=== PATIENT | female | born 1970 | race Hispanic/Latino ===

== ENCOUNTER 2023-05-15 10:38 | Emergency (ER) | payer MEDICAID, SELFPAY ==
[2023-05-15 10:38] VITALS: BP 145/131; PULSE 72; RESP 16; TEMP 36.4; O2SAT 99; BMI 32.1
--- NOTE | 2023-05-15 10:59 | EKG12_ITS ---
Test Reason : HTN Blood Pressure : / mmHG Vent. Rate : 072 BPM Atrial Rate : 072 BPM P-R Int : 168 ms QRS Dur : 084 ms QT Int : 382 ms P-R-T Axes : 040 025 048 degrees QTc Int : 418 ms Normal sinus rhythm Possible Inferior infarct , age undetermined Abnormal ECG Confirmed by JAMES PRUITT, DELON ([id number]), associate entertainment editor ARGELIA BUNN ([id number]) on 05/17/2023 8:39:12 AM Referred By: Confirmed By:DELON RAMIREZ MD
--- NOTE | 2023-05-15 11:00 | EX.ED.DYSGE1 ---
HPI History of Present Illness Chief Complaint: Hypertension Detail of Chief Complaint: Right shoulder pain and hypertension Informant: patient Narrative Narrative: Patient presents to the emergency department from urgent care with complaint of elevated blood pressure at urgent care. She presented to urgent care because she has been having right shoulder pain for greater than 1 year. Pain in right shoulder worse over the last 2 months. Having pain with range of motion and movement and at times having hard time sleeping. She states that she fell over a year ago landing backwards on her right hand and she states that is maybe when the pain started. Patient is Greek-speaking and history obtained through transition coach on iPad. She denies any real chest pain other than she sometimes gets some pressure in her chest when she is feeling sad or down. She denies exertional dyspnea. No history of hypertension and currently does not take any medications. Patient is right-hand dominant. PFSH PFSH Home Medications hydrocodone-acetaminophen 5-325mg 5mg-325mg 1 tab PO Q4H PRN PRN Pain 2 days #10 TABLETS 05/15/23 [Rx Last Taken Unknown] naproxen 500 mg tablet (Naprosyn) 500 mg PO BID PRN pain #20 tabs 05/15/23 [Rx Last Taken Unknown] Allergy/AdvReac Type Severity Reaction Status Date / Time No Known Allergies Allergy Verified 05/15/23 10:38 Social History Smoking Status: Former smoker ROS ROS ED ROS Narrative Hypertension Review of Systems ROS Unobtainable: other Constitutional Constitutional ED: Reports lethargy; Denies chills, fever(s), sweats or weight loss Eyes Eyes: Denies blurry vision, change in vision or diplopia ENT ENT ED: Denies rhinorrhea or sore throat Cardiovascular Cardiovascular: Denies chest pain, orthopnea or racing heartbeat Respiratory/Chest Respiratory/Chest: Denies cough, dyspnea, dyspnea on exertion, orthopnea or sputum Gastrointestinal Gastrointestinal: Denies abdominal pain, diarrhea, nausea or vomiting Genitourinary Genitourinary ED: Denies dysuria, hematuria or urinary frequency Musculoskeletal Musculoskeletal: Reports other Details: Right shoulder pain ; Denies arthralgias, back pain, myalgias or neck pain Integumentary Denies abscess, Abrasions or rash Neurologic Neurologic: Denies headache(s) or weakness Psychiatric Psychiatric: Denies anxiety, depression or suicidal thoughts Endocrine Endocrinology: Denies polydipsia, polyphagia or polyuria Hematologic/Lymphatic Hematologic/Lymphatic: Denies easy bleeding, easy bruising or lymphadenopathy Allergic/Immunologic Allergic/Immunologic ED: Denies mouth swelling, tongue swelling or urticaria EXAM Physical Exam Const Vital Signs: 05/15/23 10:38 05/15/23 12:45 05/15/23 13:00 Temperature 97.6 F L Temperature Source Temporal Pulse Rate 72 69 78 Respiratory Rate 16 16 16 Blood Pressure 145/131 H 117/75 120/70 Blood Pressure Mean 135 89 86 Pulse Ox 99 98 98 Oxygen Delivery Method Room Air Room Air Positive well nourished and well developed General Appearance ED: well developed and NAD HEENT Reports TM's clear and moist mucous membranes normocephalic and atraumatic; Negative for trauma or tenderness Tympanic Membrane ED: Yes TM's clear Eyes PERRL and EOMs intact bilaterally General Eye ED: Negative for pale conjunctiva or scleral icterus Neck no lymphadenopathy, supple and no JVD General: Negative for tenderness Chest Wall inspection of chest normal and palpation of chest normal Chest: Negative for tenderness Resp normal respiratory effort and clear to auscultation bilaterally Effort and Inspection: Negative for respiratory distress or pain with movement Auscultation: Negative for rhonchi, wheezes or diminished lung sounds Cardio regular rate, regular rhythm, S1 normal heart sound, S2 normal heart sound and no murmurs Peripheral Pulses: pulses 2+ throughout GI normal to inspection, nondistended, normoactive bowel sounds, soft to palpation, non-tender, non-distended and no masses Back/Spine no CVA tenderness and no thoracic nor lumbar tenderness Extremity Extremity Narrative: Right shoulder-patient has tenderness palpation over the anterior aspect of the glenohumeral joint on the right. She has pain with range of motion especially abduction past 90 degrees. She has tenderness over the bicep tendon that seems to reproduce her pain. She is neurovascular intact distally. There is no erythema or warmth noted to the joint. No significant soft tissue swelling noted. Neurovascularly intact distally. General Extremety ED: Negative for edema General Extremity: Negative for edema Neuro oriented x3, CN's II-XII intact bilaterally, no sensory deficits noted and gait normal Sensorium / Orientation: awake, alert, oriented to person, oriented to place and oriented to time Motor Exam: strength 5/5 throughout and strength abnormal Psych mental status grossly normal Skin no rashes or lesions noted and no wounds MDM MDM MDM Narrative Medical decision making narrative: Patient presents with right shoulder pain has been chronic and worse over the last 2 months. No recent injury. Also was seen at urgent care and referred for elevated blood pressure. Patient does not have a history of hypertension. On arrival here her pressure was 145/131 whereas at the urgent care her systolic was over 200. Without any treatment repeat blood pressure down into the 120s over 70s. EKG obtained on arrival showed sinus rhythm with rate of 72 bpm with no acute ST segment changes. CBC with differential and chemistries unremarkable. Troponin was normal. X-rays of the right shoulder obtained showed no acute disease process. Patient will be given a prescription for naproxen and a few [place] for severe pain. She will be given a sling. She will be given referral to orthopedics for follow-up. I do not feel any treatment is required for blood pressure at this time. Suspect her elevated blood pressure may have been related to pain versus whitecoat hypertension versus anxiety. Clinically she looks well. Patient also has had a cough for 3 days therefore COVID and flu testing was obtained and she was positive for influenza A. Lab Data Attestation: I reviewed the patient's lab results. Labs: Laboratory Results - last 24 hr 05/15/23 11:15 WBC 6.5 RBC 4.40 Hgb 13.6 Hct 39.6 MCV 90.0 MCH 30.9 MCHC 34.3 RDW Std Deviation 41.6 RDW Coeff of Elmer 12.6 Plt Count 222 MPV 10.0 Immature Gran % (Auto) 0.600 Neut % (Auto) 81.2 H Lymph % (Auto) 11.7 L Haines % (Auto) 6.2 Eos % (Auto) 0.0 Baso % (Auto) 0.3 Absolute Neuts (auto) 5.3 Absolute Lymphs (auto) 0.76 L Nucleated RBC % 0 Sodium 142 Potassium 3.8 Chloride 113 H Carbon Dioxide 26.0 Anion Gap 3 L BUN 14 Creatinine 0.71 Estim Creat Clear Calc 80.04 Est GFR (MDRD) Af Amer 111 Est GFR (MDRD) Non-Af 92 BUN/Creatinine Ratio 19.8 Glucose 156 H Calcium 9.3 Troponin I High Sens 5 Radiography Diagnostic Testing: Clinical Impression(s) from Imaging Studies Shoulder X-Ray 05/15/23 11:14 IMPRESSION: No acute fracture or dislocation identified in the right shoulder. Electronically Signed: Sandi Crawford MD at 11:53 EST , 2 view x-rays of the right shoulder obtained interpreted by myself as no evidence of fracture dislocation or acute disease process. Radiology in agreement. EKG Initial EKG: Attestation: I personally reviewed and interpreted this EKG as follows: Comments: Sinus rhythm with rate of 72 bpm with no acute ST segment changes. Discharge Plan Triage Chief Complaint: Hypertension ED Provider: Marla Lockwood Dx/Rx/DC Orders Clinical Impression: Influenza A, Acute pain of right shoulder Instructions: ED Influenza (Adult), ED Shoulder Pain, Uncertain Cause Prescriptions: New hydrocodone-acetaminophen [hydrocodone-acetaminophen] 5-325 mg tablet 1 tab PO Q4H PRN PRN (Reason: Pain) 2 Days Qty: 10 0RF naproxen [Naprosyn] 500 mg tablet 500 mg PO BID PRN (Reason: pain) Qty: 20 0RF Referrals: Gary Mukherjee DO [Med Staff - Active Staff] - 3-5 Days Junito Carcamo MD [Med Staff - Active Staff] - 3-5 Days Disposition Disposition: Home, Self Care Discharge Date/Time: 05/15/23 15:29
--- NOTE | 2023-05-15 11:03 | NURSING ---
NO OLD EKGS
--- NOTE | 2023-05-15 11:14 | RAD_ITS ---
HISTORY: pain. TECHNIQUE: XR Shoulder Min 2 Views. COMPARISON: None. FINDINGS: BONES : No acute fracture identified. Mineralization unremarkable. JOINTS: No glenohumeral dislocation. Mild acromioclavicular degenerative change without subluxation. SOFT TISSUES: Small calcified granuloma in the right lung base. RAD/Shoulder min 2 Views IMPRESSION: No acute fracture or dislocation identified in the right shoulder. Electronically Signed: Sandi Crawford MD at 11:53 EST ,
[2023-05-15 11:20] LABS: Absolute Lymphocyte Count 0.76 X10^3/uL (0.83-4.51); Absolute Neutrophil Count 5.3 X10^3/uL (2.0-7.7); Basophil# 0.02 X10^3/uL; Basophil% 0.3 % (0-1); Hematocrit 39.6 % (37-47); Hemoglobin 13.6 g/dL (12.0-15.0); Lymphocyte # 0.76 X10^3/ul (0.83-4.51); Lymphocyte % 11.7 % (19-41); Mean Corp Hgb Conc 34.3 g/dL (32-36); Mean Corpuscular Hgb 30.9 pg (27.0-32.0); Monocyte% 6.2 % (0-10); NRBC Flagged by Analyzer 0 % (0-5); Neutrophil # 5.27 X10^3/uL (2.7-7.7); Neutrophil % 81.2 % (47-70); Platelet Count 222 K/mm3 (150-450); RBC Distribution Width CV 12.6 % (11.6-14.6); RBC Distribution Width SD 41.6 fl (35.1-43.9); White Blood Count 6.5 K/mm3 (4.4-11.0)
[2023-05-15 11:38] LABS: Anion Gap 3 (5-15); BUN 14 mg/dL (7-18); BUN/Creat Ratio 19.8 RATIO (10-20); Calcium,Total 9.3 mg/dL (8.5-10.1); Chloride 113 mmol/L (98-107); Creatinine, Serum 0.71 mg/dL (0.55-1.02); EST Glomerular Filtration Rate 92 mL/min (>60); Est Glom Filt Rate - Afr Amer 111 mL/min (>60); Estimated Creatinine Clearance 80.04 ml/min; Glucose 156 mg/dL (74-106); Potassium 3.8 mmol/L (3.5-5.1); Sodium Level 142 mmol/L (136-145); Troponin-I HS 5 pg/mL (3.0-54.0)
[2023-05-15 12:45] VITALS: BP 117/75; PULSE 69; RESP 16; O2SAT 98
[2023-05-15 13:00] VITALS: BP 120/70; PULSE 78; RESP 16; O2SAT 98
== END 2023-05-15 15:29 | disposition home or self-care (01) ==
PROVIDERS: Emergency Provider Emergency Medicine; Visit Provider Emergency Medicine
DX: J10.1 Influenza due to other identified influenza virus with other respiratory manifestations (principal); M25.511 Pain in right shoulder; I10 Essential (primary) hypertension; Z87.891 Personal history of nicotine dependence; W19.XXXA Unspecified fall, initial encounter; R05.9 Cough, unspecified
CPT/HCPCS: 73030; 80048; 84484; 85025; 87631; 93005; 99285

== ENCOUNTER 2023-09-21 17:48 | Emergency (ER) | payer MEDICAID, SELFPAY ==
[2023-09-21 17:49] VITALS: BP 131/76; PULSE 94; RESP 18; TEMP 36.1; O2SAT 100
--- NOTE | 2023-09-21 18:45 | RAD_ITS ---
STUDY: X-RAY - RIGHT ELBOW REASON FOR EXAM: Female, 53 years old. Pain TECHNIQUE: 2 view(s) of the elbow. COMPARISON: None. FINDINGS: Normal visualized humerus, radius and ulna. Normal radiocapitellar and ulnotrochlear articulations. The soft tissue structures are unremarkable. RAD/Elbow 2 Views IMPRESSION: Normal x-ray examination of the elbow. Electronically Signed: Jone Ponce MD at 19:07 EDT ,
--- NOTE | 2023-09-21 18:45 | RAD_ITS ---
STUDY: X-RAY - RIGHT SHOULDER REASON FOR EXAM: Female, 53 years old. Pain TECHNIQUE: 4 view(s) of the shoulder. COMPARISON: May 15, 2023 FINDINGS: Normal glenohumeral articulation. Normal acromioclavicular joint. Normal acromion. Normal humeral head and visualized proximal humerus. The soft tissue structures are unremarkable. Normal visualized pulmonary apex. RAD/Shoulder min 2 Views IMPRESSION: Normal x-ray examination of the shoulder. Electronically Signed: Jone Ponce MD at 19:06 EDT ,
--- NOTE | 2023-09-21 21:09 | EDS_ITS ---
HPI History of Present Illness HPI Narrative: 53-year-old non-Azeri speaking, female with chronic right shoulder pain for 6 months. Denies any fall injury or trauma. States she had it evaluated 3 months ago without diagnosis. I do not think she is followed up with anybody else since that time. She does not have a primary care physician. History and exam were done with an bookkeeping service sales agent. Chief Complaint: Upper Extremity Injury Informant: patient Occured/Mechanism Mechanism/Context: No injury and No blunt trauma Onset/Context/Timing Onset: Month(s) Context: Gradual Onset Timing: Continuous Quality of Pain: Dull and Aching Current Severity: Moderate Maximum Severity: Moderate Associated Symptoms Associated Symptoms: Negative for Parasthesia, Weakness or Loss of Funtion Narrative Narrative: 53-year-old female [id number] complaining of chronic right shoulder pain for 6 months. Limited range of motion. Denies any fall or trauma. No redness or fever. No prior history of surgery to the shoulder. Prior similar symptoms: Yes Recent Illness/Hospitalization: No PFSH PFSH no medical history Home Medications ?Medication ?Instructions ?Recorded ?Last Taken ?Type hydrocodone-acetaminophen 5-325mg 1 tab PO Q4H PRN PRN Pain 2 days 05/15/23 Unknown Rx 5mg-325mg #10 TABLETS naproxen 500 mg tablet (Naprosyn) 500 mg PO BID PRN pain #20 tabs 05/15/23 Unknown Rx Allergy/AdvReac Type Severity Reaction Status Date / Time No Known Allergies Allergy Verified 09/21/23 17:52 Social History Smoking Status: Former smoker ROS ROS ED ROS Narrative Denies recent illness. Review of Systems ROS Unobtainable: Denies due to encephalopathy Constitutional Constitutional ED: Denies chills Eyes Eyes: Denies eye pain ENT ENT ED: Denies dental pain Cardiovascular Cardiovascular: Denies abdominal pain Respiratory/Chest Respiratory/Chest: Denies chest congestion Gastrointestinal Gastrointestinal: Denies diarrhea Genitourinary Genitourinary ED: Reports none Musculoskeletal Musculoskeletal: Reports limited range of motion and other Details: Chronic right shoulder pain Integumentary Reports none Neurologic Neurologic: Reports none Psychiatric Psychiatric: Reports none Endocrine Endocrinology: Reports none Allergic/Immunologic Allergic/Immunologic ED: Reports none EXAM Physical Exam Narrative Exam Narrative: Well-appearing 53-year-old female. Vital signs stable afebrile. HEENT exam unremarkable. Neck nontender no lymphadenopathy. Back nontender. Lungs clear equal symmetrical bilaterally. Heart regular rhythm rate about 90 no murmur. Chest wall and ribs nontender. Abdomen soft nontender. Moving all 4 extremities. No edema. Plan pain in her right shoulder. There is no redness or swelling. No warmth. No bony deformity. No axillary lymphadenopathy. The distal humerus, elbow, forearm wrist and hand are nontender. 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 Normal sensation. Strong radial pulse. Normal cap refill. Skin is normal. She has limited range of motion with her right shoulder. She can lift her arm overhead. Concerning for possible rotator cuff tear. The left shoulder is normal with normal range of motion. Lower extremities are unremarkable. She is awake and alert. Const Vital Signs: 09/21/23 17:49 Temperature 97 F L Temperature Source Temporal Pulse Rate 94 Respiratory Rate 18 Blood Pressure 131/76 H Blood Pressure Mean 94 Pulse Ox 100 Oxygen Delivery Method Room Air Positive well nourished, well developed, alert, oriented x3, no apparent distress, average body habitus, no limitations and healthy appearing; Negative for cachectic, contractures or unkempt General Appearance ED: active, cooperative, comfortable and well developed; Negative for unkempt, cachectic or contractures Nutritional Appearance: Negative for cachectic HEENT Reports normocephalic and head/scalp atraumatic Eyes PERRL and EOMs intact bilaterally General Eye ED: Yes normal appearance of both eyes Neck full ROM, No nuchal rigidity, no lymphadenopathy, supple, no meningeal signs and no JVD Lymph Lymphatic: no lymphadenopathy noted and no lymphedema noted; Negative for lymphedema or lymphadenopathy Chest Wall inspection of chest normal and palpation of chest normal Resp normal respiratory effort, normal air movement, no retractions, no use of accessory muscles, clear to auscultation bilaterally and percussion normal Cardio regular rate, regular rhythm, S1 normal heart sound, S2 normal heart sound, no murmurs, no rub, no gallops, no clicks and no JVD Rate: regular rate Rhythm: regular rhythm GI normal to inspection, nondistended, normoactive bowel sounds, soft to palpation, non-tender, non-distended and no masses Back/Spine no CVA tenderness, normal ROM, normal to inspection, thoracic and lumbar spine normal to inspection and no thoracic nor lumbar tenderness Extremity normal to inspection, normal capillary refill, no joint enlargement, no clubbing, cyanosis or edema, no calf tenderness and no pedal edema; Negative for full ROM Extremity Narrative: Limited range of motion right shoulder. Unable to lift her arm over her shoulder or overhead. Concern for rotator cuff tear due to her limited range of motion. There is no signs of septic joint. No redness or warmth. No signs of trauma. No swelling. Neuro oriented x3, CN's II-XII intact bilaterally, moves all extremities, no focal motor deficits and no sensory deficits noted Psych mental status grossly normal, thought process normal, cooperative and activity/motor behavior normal Appearance: grossly normal; Negative for unkempt Attitude: calm, engaged, No paranoid and No withdrawn Activity / Motor Behavior: appropriate eye contact Speech: normal speech Mood & Affect: euthymic mood Thought Process: normal thought process Thought Content: normal thought content Skin no rashes or lesions noted, no wounds, skin turgor normal, no jaundice and no petechiae General Skin Exam: no breakdown Lesions: no lesions MDM MDM MDM Narrative Medical decision making narrative: 51-year-old female chronic right shoulder pain. No trauma. Triage did a right shoulder x-ray and right elbow. They are both unremarkable. Due to her limited range of motion 90 this may be secondary to rotator cuff tear. She will be instructed to follow-up with orthopedics. I did go over imaging with the patient with an bookkeeping service sales agent iPad and she is comfortable with the plan. Motrin for pain. Lab Data Lab results narrative: Right shoulder x-ray several views interpreted by myself and radiologist shows no acute abnormality. Right elbow x-ray 2 view shows no acute abnormality. No fracture or dislocation. Radiography Diagnostic Testing: Clinical Impression(s) from Imaging Studies Elbow X-Ray 09/21/23 18:45 IMPRESSION: Normal x-ray examination of the elbow. Electronically Signed: Jone Ponce MD at 19:07 EDT , Shoulder X-Ray 09/21/23 18:45 IMPRESSION: Normal x-ray examination of the shoulder. Electronically Signed: Jone Ponce MD at 19:06 EDT Reading Location ID and State: [facility] / [place] Tel , Service support , Discharge Plan Triage Chief Complaint: Upper Extremity Injury ED Provider: Wellington Navarro Dx/Rx/DC Orders Clinical Impression: Chronic pain in right shoulder, Rotator cuff tear Instructions: ED Rotator Cuff Tear Prescriptions: No Action hydrocodone-acetaminophen [hydrocodone-acetaminophen] 5-325 mg tablet 1 tab PO Q4H PRN PRN (Reason: Pain) 2 Days Qty: 10 0RF naproxen [Naprosyn] 500 mg tablet 500 mg PO BID PRN (Reason: pain) Qty: 20 0RF Primary Care Provider: Care Physician,No Primary Referrals: Cory Lawrence MD [Med Staff - Active Staff] - As soon as possible Levi Valdovinos MD [Med Staff - Active Staff] - As soon as possible Care Physician,No Primary [Primary Care Provider] - Activity Restrictions/Additional Instructions: Motrin for pain and Tylenol. Call the orthopedic doctors I referred you to and see which 1 can get you in sooner. Due to your pain in your shoulder and lack of range of motion I believe this may be a rotator cuff tear. Your x-rays look okay. A torn rotator cuff does not show up on an x-ray. Print Language: [place] Disposition Disposition: Home, Self Care
[2023-09-21 21:16] VITALS: BP 130/89; PULSE 68; RESP 18; TEMP 36.1; O2SAT 100
== END 2023-09-21 21:17 | disposition home or self-care (01) ==
PROVIDERS: Emergency Provider Emergency Medicine; Visit Provider Emergency Medicine
DX: M25.511 Pain in right shoulder (principal); G89.29 Other chronic pain; M75.100 Unspecified rotator cuff tear or rupture of unspecified shoulder, not specified as traumatic; Z87.891 Personal history of nicotine dependence
CPT/HCPCS: 73030; 73070; 99282

== ENCOUNTER 2024-05-11 13:18 | Emergency (ER) | payer MEDICAID, SELFPAY ==
[2024-05-11 13:20] VITALS: BP 150/65; PULSE 101; RESP 18; TEMP 36.6; O2SAT 97; BMI 33.8
--- NOTE | 2024-05-11 13:26 | EKG12_ITS ---
Test Reason : CHEST PAIN Blood Pressure : */* mmHG Vent. Rate : 89 BPM Atrial Rate : 89 BPM P-R Int : 138 ms QRS Dur : 76 ms QT Int : 352 ms P-R-T Axes : * 160 127 degrees QTcB Int : 428 ms Normal sinus rhythm Low voltage QRS Left posterior fascicular block Inferior infarct , age undetermined Abnormal ECG Confirmed by JAMES PRUITT, DELON ([id number]), photographic editor ARGELIA BUNN ([id number]) on 05/12/2024 8:20:20 AM Referred By: Confirmed By: DELON RAMIREZ MD
--- NOTE | 2024-05-11 13:35 | RAD_ITS ---
INDICATION: chest pain EXAMINATION/TECHNIQUE: X-RAY - XR Chest 1 View COMPARISON: No relevant prior comparison study available FINDINGS: LINES/DEVICES: None. LUNGS: No consolidation, edema or effusion. There is a calcified appearing nodule within the right lower lung suggestive of a granuloma. No pneumothorax. MEDIASTINUM AND CARDIOVASCULAR STRUCTURES: Cardiac silhouette not enlarged. Central airways and mediastinal contour are unremarkable. BONES AND SOFT TISSUES: Unremarkable. RAD/Chest 1 View (Portable) IMPRESSION: No radiographic evidence of acute cardiopulmonary disease. Electronically Signed: Katie Gutierrez MD at 13:54 EST ,
[2024-05-11 13:41] LABS: Absolute Lymphocyte Count 1.92 X10^3/uL (0.83-4.51); Absolute Neutrophil Count 4.4 X10^3/uL (2.0-7.7); Basophil# 0.03 X10^3/uL; Basophil% 0.4 % (0-1); Eosinophil# 0.07 X10^3/uL; Hematocrit 42.8 % (37-47); Hemoglobin 14.7 g/dL (12.0-15.0); Lymphocyte # 1.92 X10^3/ul (0.83-4.51); Lymphocyte % 27.9 % (19-41); Mean Corp Hgb Conc 34.3 g/dL (32-36); Mean Corpuscular Hgb 29.7 pg (27.0-32.0); Mean Corpuscular Volume 86.5 fL (81-99); Mean Platelet Vol. 9.7 fl (6.2-12.0); Monocyte# 0.49 X10^3/uL; Monocyte% 7.1 % (0-10); NRBC Flagged by Analyzer 0 % (0-5); Neutrophil # 4.37 X10^3/uL (2.7-7.7); Neutrophil % 63.5 % (47-70); Platelet Count 249 K/mm3 (150-450); RBC Distribution Width CV 12.5 % (11.6-14.6); RBC Distribution Width SD 39.4 fl (35.1-43.9); Red Blood Count 4.95 M/mm3 (4.2-5.4); White Blood Count 6.9 K/mm3 (4.4-11.0)
[2024-05-11 14:06] LABS: Anion Gap 7 (5-15); BUN 16 mg/dL (7-18); BUN/Creat Ratio 18.9 RATIO (10-20); Calcium,Total 9.4 mg/dL (8.5-10.1); Chloride 108 mmol/L (98-107); Creatinine, Serum 0.85 mg/dL (0.55-1.02); EST Glomerular Filtration Rate 75 mL/min (>60); Est Glom Filt Rate - Afr Amer 90 mL/min (>60); Estimated Creatinine Clearance 82.92 ml/min; Glucose 120 mg/dL (74-106); Potassium 4.2 mmol/L (3.5-5.1); Sodium Level 142 mmol/L (136-145); Troponin-I HS (w/2H Reflex) < 3 pg/mL (3.0-54.0)
[2024-05-11 14:21] VITALS: BP 138/78; O2SAT 98
[2024-05-11 15:00] VITALS: BP 137/87; PULSE 78; RESP 16; O2SAT 98
--- NOTE | 2024-05-11 15:00 | EDS_ITS ---
HPI <ELENA London - Last Filed: 05/11/24 15:52> History of Present Illness Chief Complaint: Chest Pain Narrative Narrative: Patient presenting today due to an episode of midsternal chest pain that she had around 3 AM this morning that woke her up out of her sleep. She reports that the pain then subsided and she was able to go back to sleep. She has not had any pain since. She reports that it has been a long time since she has had a medical checkup and would like to get, checked out. She denies any cardiac history or history of blood clots or recent surgery/travel/immobilization. She denies any chronic medical conditions. She has had no fevers, chills, shortness of breath, abdominal pain, nausea, or vomiting. PFSH <ELENA London - Last Filed: 05/11/24 15:52> PFSH Medical History no medical history Allergy/AdvReac Type Severity Reaction Status Date / Time No Known Allergies Allergy Verified 05/11/24 13:19 Family History no significant family his Surgical History no surgical history Social History Smoking Status: Never smoker ROS <ELENA London - Last Filed: 05/11/24 15:52> ROS ED Constitutional Constitutional ED: Denies chills or fever(s) Cardiovascular Cardiovascular: Reports chest pain Respiratory/Chest Respiratory/Chest: Denies cough or dyspnea Gastrointestinal Gastrointestinal: Denies abdominal pain, nausea or vomiting Musculoskeletal Musculoskeletal: Denies arthralgias or myalgias Integumentary Denies rash Neurologic Neurologic: Denies weakness EXAM <ELENA London - Last Filed: 05/11/24 15:52> Physical Exam Const Vital Signs: 05/11/24 13:20 05/11/24 14:21 05/11/24 14:21 Temperature 97.9 F Temperature Source Oral Pulse Rate 101 H Respiratory Rate 18 Respiratory Effort Blood Pressure 150/65 H 138/78 H Blood Pressure Mean 93 98 Pulse Ox 97 98 Oxygen Delivery Method Room Air Room Air 05/11/24 14:21 05/11/24 15:00 05/11/24 15:16 Temperature 97.9 F Temperature Source Pulse Rate 78 78 Respiratory Rate 16 16 Respiratory Effort Normal Non-Labored Blood Pressure 137/87 H 137/87 H Blood Pressure Mean 103 103 Pulse Ox 98 98 Oxygen Delivery Method Positive well nourished, well developed and no apparent distress General Appearance ED: well developed HEENT Reports normocephalic and head/scalp atraumatic Mouth ED: Yes moist mucous membranes normal Eyes PERRL and EOMs intact bilaterally Neck full ROM and supple Chest Wall inspection of chest normal Resp normal respiratory effort and clear to auscultation bilaterally Cardio regular rate and regular rhythm GI soft to palpation, non-tender, non-distended and no masses Back/Spine normal ROM and normal to inspection Extremity normal to inspection and full ROM Neuro oriented x3, CN's II-XII intact bilaterally, moves all extremities, no focal motor deficits and no sensory deficits noted Sensorium / Orientation: awake and alert Psych mental status grossly normal and thought process normal Skin no rashes or lesions noted and no wounds <Dr. Branden Guillermo DO - Last Filed: 05/11/24 15:19> Physical Exam Const Vital Signs: 05/11/24 13:20 05/11/24 14:21 05/11/24 14:21 Temperature 97.9 F Temperature Source Oral Pulse Rate 101 H Respiratory Rate 18 Respiratory Effort Blood Pressure 150/65 H 138/78 H Blood Pressure Mean 93 98 Pulse Ox 97 98 Oxygen Delivery Method Room Air Room Air 05/11/24 14:21 05/11/24 15:00 05/11/24 15:16 Temperature 97.9 F Temperature Source Pulse Rate 78 78 Respiratory Rate 16 16 Respiratory Effort Normal Non-Labored Blood Pressure 137/87 H 137/87 H Blood Pressure Mean 103 103 Pulse Ox 98 98 Oxygen Delivery Method [facility] <ELENA London - Last Filed: 05/11/24 15:52> [facility] Narrative Medical decision making narrative: Patient presenting due to an episode of chest pain that occurred around 3 AM this morning. She is Italian-speaking, formal corporate administrator service was used. Her chest pain resolved and she was able to fall back asleep. She is just wanting to get checked out, she has had no chest pain since. Cardiac labs were obtained, her CBC, BMP, and troponin are all unremarkable. Chest x-ray negative for any acute cardiopulmonary abnormality. Her EKG shows normal sinus rhythm, no ischemia. She has a low Wells score, low suspicion for PE. Her vitals are unremarkable. She does not currently have a PCP, I will give her a referral for 1. I recommended that she follow-up in the next 5 to 7 days. Return instructions discussed and patient discharged home in stable condition. Lab Data Attestation: I reviewed the patient's lab results. Labs: Laboratory Results - last 24 hr 05/11/24 13:30 WBC 6.9 RBC 4.95 Hgb 14.7 Hct 42.8 MCV 86.5 MCH 29.7 MCHC 34.3 RDW Std Deviation 39.4 RDW Coeff of Elmer 12.5 Plt Count 249 MPV 9.7 Immature Gran % (Auto) 0.100 Neut % (Auto) 63.5 Lymph % (Auto) 27.9 [facility] [facility] % (Auto) 7.1 Eos % (Auto) 1.0 Baso % (Auto) 0.4 Absolute Neuts (auto) 4.4 Absolute Lymphs (auto) 1.92 Nucleated RBC % 0 Sodium 142 Potassium 4.2 Chloride 108 H Carbon Dioxide 27.0 Anion Gap 7 BUN 16 Creatinine 0.85 Estim Creat Clear Calc 82.92 Est GFR (MDRD) Af Amer 90 Est GFR (MDRD) Non-Af 75 BUN/Creatinine Ratio 18.9 Glucose 120 H Calcium 9.4 Troponin I High Sens < 3 L Radiography Diagnostic Testing: Clinical Impression(s) from Imaging Studies Chest X-Ray 05/11/24 13:35 IMPRESSION: No radiographic evidence of acute cardiopulmonary disease. Electronically Signed: Katie Gutierrez MD at 13:54 EST Reading Location ID and State: [facility] / [place] Tel , Service support , <Dr. Branden Guillermo, DO - Last Filed: 05/11/24 15:19> [facility] Lab Data Labs: Laboratory Results - last 24 hr 05/11/24 13:30 WBC 6.9 RBC 4.95 Hgb 14.7 Hct 42.8 MCV 86.5 MCH 29.7 MCHC 34.3 RDW Std Deviation 39.4 RDW Coeff of Elmer 12.5 Plt Count 249 MPV 9.7 Immature Gran % (Auto) 0.100 Neut % (Auto) 63.5 Lymph % (Auto) 27.9 [facility] % (Auto) 7.1 Eos % (Auto) 1.0 Baso % (Auto) 0.4 Absolute Neuts (auto) 4.4 Absolute Lymphs (auto) 1.92 Nucleated RBC % 0 Sodium 142 Potassium 4.2 Chloride 108 H Carbon Dioxide 27.0 Anion Gap 7 BUN 16 Creatinine 0.85 Estim Creat Clear Calc 82.92 Est GFR (MDRD) Af Amer 90 Est GFR (MDRD) Non-Af 75 BUN/Creatinine Ratio 18.9 Glucose 120 H Calcium 9.4 Troponin I High Sens < 3 L Radiography Chest X-Ray - ED: 1 View, Read by ED Physician, Read by Radiologist and No Acute Disease Diagnostic Testing: Clinical Impression(s) from Imaging Studies Chest X-Ray 05/11/24 13:35 IMPRESSION: No radiographic evidence of acute cardiopulmonary disease. Electronically Signed: Katie Gutierrez MD at 13:54 EST , Treatment and Re-Evaluation :: I have personally performed a face to face assessment of the patient and have reviewed the DIGNA Note. I performed a substantive portion of the visit including all aspects of the following. My gomez findings include: History: Patient presents with chest pain that began today. Patient states it came on gradually. Patient states it has been intermittent. Patient states it is over the lower substernal area. Patient describes it as stabbing. Patient states she did feel somewhat lightheaded at times this morning. Patient denies any nausea or vomiting. Patient denies any shortness of breath or cough. Patient denies any palpitations or sweats. Patient states she has a family history of a father who had coronary artery disease and a sister who had coronary artery disease. They were both in their early 50s when this started. Patient denies any other cardiac or PE risk factors. Exam: Vital signs are stable except for mildly elevated blood pressure 150/65. Patient is afebrile. Patient is in no acute distress. Oral mucosa is pink and moist. Neck is supple. Trachea is midline. There is no JVD. Heart was regular rate and rhythm. Lungs are clear and equal bilaterally. There is good respiratory effort noted. Abdomen is soft. Bowel sounds are normal. There is no tenderness. There is no guarding noted. Cranial nerves II through XII are intact. There are no focal motor or sensory deficits noted. Musculoskeletal exam reveals mild tenderness of the lower sternal area. There is no bony crepitance or step-off noted. There is no subcutaneous emphysema palpated. Medical Decision Making: Differential diagnosis includes cardiac dysrhythmia, cardiac ischemia, pneumonia, pneumothorax, electrolyte abnormality, gastroesophageal reflux disease, and anxiety. EKG will be obtained to assess for cardiac dysrhythmia and cardiac ischemia. This x-ray will be obtained to assess for pneumonia and pneumothorax. CBC will be obtained to assess for leukocytosis and anemia. Basic metabolic profile will be obtained to assess for electrolyte abnormality and renal function. High-sensitivity troponin will be obtained to assess for cardiac ischemia. EKG was obtained. On my independent interpretation, shows normal sinus rhythm with a rate of 89. KS interval was normal at 138 ms. QRS interval is normal at 76 ms. QTc interval was normal at 4 and 28 ms. There is right axis deviation at 160. There is a left posterior fascicular block pattern noted. There are no acute ST or T wave changes noted. There are no prior EKGs available for comparison. Portable 1 view chest x-ray was obtained. On my independent interpretation, lung velasquez are clear. There is normal cardiac silhouette. Bony thorax is normal. There is no acute process noted. Radiologist also interpreted the x-ray and agrees. CBC was reviewed and was within normal limits. Basic metabolic profile was reviewed and was within normal limits. High-sensitivity troponin was reviewed and was normal. Patient was advised of her findings. Patient was instructed to follow-up with a primary care physician in 5 to 7 days. Patient was instructed to take Tylenol or ibuprofen as needed for any pain. Patient was also instructed to take Maalox or Mylanta as needed for any reflux symptoms. Patient was instructed to return if worse in any way. Patient understood and was agreeable with the plan. All questions were answered. Discharge Plan Triage Chief Complaint: Chest Pain ED Midlevel Provider: Zeynep Mccloud ED Provider: Branden Guillermo Dx/Rx/DC Orders Clinical Impression: Atypical chest pain Instructions: ED Chest Pain, Uncertain Cause Primary Care Provider: Care Physician,No Primary Referrals: Donovan Patino MD [Med Staff - [facility]] - 1 Week Care Physician,No Primary [Primary Care Provider] - Activity Restrictions/Additional Instructions: Follow-up with the PCP I referred you to. Print Language: Italian Disposition Disposition: Home, Self Care Discharge Date/Time: 05/11/24 15:44
[2024-05-11 15:16] VITALS: BP 137/87; PULSE 78; RESP 16; TEMP 36.6; O2SAT 98
[2024-05-11 15:34] LABS: Reflex Troponin-HS? (from REC) Y
== END 2024-05-11 15:44 | disposition home or self-care (01) ==
PROVIDERS: Emergency Provider Emergency Medicine; Visit Provider Emergency Medicine
DX: R07.89 Other chest pain (principal)
CPT/HCPCS: 71045; 80048; 84484; 85025; 93005; 99284; A4216